=== PATIENT | female | born 2000 | race Two or more races ===

== ENCOUNTER 2023-08-27 01:56 | Emergency (ER) | payer BC, OTHER ==
[~2023-08-27] VITALS: Ht 157.5 cm; Wt 65.9 kg
[2023-08-27 02:36] LABS: Basophils # (auto) 0 10 ^3/uL (0-0.2); Basophils % (auto) 0.5 % (0.0-2.0); Eosinophils # (auto) 0.2 10 ^3/uL (0-0.8); Hematocrit 41.7 % (36.0-46.0); Hemoglobin 14.4 g/dL (12.2-16.2); Lymphocytes # (auto) 2.1 10 ^3/uL (0.4-5.4); Lymphocytes % (auto) 24.7 % (10.0-50.0); Mean Corpuscular Hemoglobin 29.8 pg (28.0-32.0); Mean Corpuscular Hgb Conc. 34.5 g/dL (32.0-36.0); Mean Corpuscular Volume 86.3 fL (80.0-100.0); Monocytes # (auto) 0.8 10 ^3/uL (0-1.3); Monocytes % (auto) 9.2 % (0.0-12.0); Neutrophils # (auto) 5.5 10 ^3/uL (1.6-8.6); Neutrophils % (auto) 63.6 % (37.0-80.0); Nucleated Red Blood Cells % 0.1 %; Red Blood Cells 4.83 10^6/uL (4.0-5.20); Red Cell Distribution Width 12.9 % (11.8-14.3); White Blood Cell 8.7 10^3/uL (4.4-10.8)
[2023-08-27 02:48] LABS: Chloride 104 mmol/L (98-107); Potassium 3.6 mmol/L (3.5-5.1); Sodium 135 mmol/L (136-145)
[2023-08-27 02:49] LABS: Anion Gap 8 (5-15); Carbon Dioxide 23 mmol/L (20-30)
[2023-08-27 02:50] LABS: Calcium 9.9 mg/dL (8.7-10.4)
[2023-08-27 02:54] LABS: Blood Urea Nitrogen 5 mg/dL (9-23); Glucose 108 mg/dL (74-106)
[2023-08-27 04:02] VITALS: BP 113/71; PULSE 87; RESP 18; TEMP 98.7; O2SAT 97
== END 2023-08-27 04:03 | disposition home or self-care (01) ==
LOC: ER 01:56
DX: O26.891 Other specified pregnancy related conditions, first trimester (principal); S76.911A Strain of unspecified muscles, fascia and tendons at thigh level, right thigh, initial encounter; M79.651 Pain in right thigh; Z3A.01 Less than 8 weeks gestation of pregnancy; X58.XXXA Exposure to other specified factors, initial encounter; Y93.89 Activity, other specified; Y92.89 Other specified places as the place of occurrence of the external cause; Y99.8 Other external cause status
CPT/HCPCS: 36415; 80048; 85025; 85379; 93971